=== PATIENT | female | born 1945 | race Caucasian/White ===

== ENCOUNTER → 2018-02-13 | Outpatient (CLI) | payer OTHER ==
[~2018-02-13] MED LIST: CYMBALTA30 MG PO; LEVOTHYROXINE 0.1 MG PO; SINGULAIR 10 MG10 M1 PO; TOPAMAX50 MG PO; VALACYCLOVIR500 MG PO; VITAMIN D310000 UNI1 PO
== END ==
LOC: RAD 12:36
DX: J45.909 Unspecified asthma, uncomplicated (principal)